=== PATIENT | female | born 1985 | race Caucasian/White ===

== ENCOUNTER 2019-02-19 09:56 | Emergency (ER) | payer MEDICAID, OTHER ==
[~2019-02-19] VITALS: Ht 162.6 cm; Wt 50.0 kg
--- NOTE | 2019-02-19 09:56 | NUR ---
Pt FLOYD ANAYA from home- EMS was called by pt's after he found the pt in her room, cyanotic, unresponsive. Pt still unresponsive after administered 8mg IN narcan. EMS started IV and gave additional 2mg IV narcan. Pt now responsive, A&O x4, tremulous. Pt c/o back pain, states chronic back pain that is unchanged from her normal amount of pain. Pt states "I am just tired of being in pain, I can't take pain." Pt placed in gown, positioned for comfort in bed with warm blankets. Continuous heart, oxygen and BP monitors applied, all safety measures observed. Pt's at bedside.
[2019-02-19 10:57] LABS: BASOPHILS # (AUTO) 0.03 x10^3/uL (0-0.1); BASOPHILS % (AUTO) 0 % (0-1); EOSINOPHILS % (AUTO) 0 % (1-7); LYMPHOCYTES # (AUTO) 0.56 x10^3/uL (1-3.4); LYMPHOCYTES % (AUTO) 4 % (22-44); MD NO; MEAN CORPUSCULAR HEMOGLOBIN 29.6 pg (27.0-34.8); MEAN CORPUSCULAR HGB CONC 32.3 g/dL (32.4-35.8); MEAN CORPUSCULAR VOLUME 91.5 fL (80-100); MEAN PLATELET VOLUME 7.1 fL (7.4-10.4); MONOCYTES # (AUTO) 0.79 x10^3/uL (0.2-0.8); MONOCYTES % (AUTO) 5 % (2-9); NEUTROPHILS # (AUTO) 13.77 x10^3/uL (1.8-6.8); NEUTROPHILS % (AUTO) 91 % (42-75); PLATELET COUNT 336 x10^3/uL (130-400); RED CELL DISTRIBUTION WIDTH 13.7 % (9.6-15.2)
[2019-02-19 11:00] LABS: ANION GAP 11 mmol/L (5-15); CHLORIDE 110 mmol/L (98-107); CREATININE 1.34 mg/dL (0.55-1.02)
--- NOTE | 2019-02-19 11:16 | NUR ---
Pt A&O x4, c/o nausea. Provider updated.
[2019-02-19] MEDS ORDERED: PHEN100C PO (11:18)
[2019-02-19] MEDS ORDERED: ONDANSETRON 2MG/ML, 2ML ONE (11:19)
--- NOTE | 2019-02-19 11:26 | NUR ---
Pt medicated for nausea per NOV. Dr. Hill at bedside to evaluate pt.
[2019-02-19] MEDS ORDERED: ONDANSETRON ODT 4 MG PO ONE (12:00)
--- NOTE | 2019-02-19 12:41 | NUR ---
Pt sitting up in bed talking with her mother. Pt states "I'm feeling way better". Pt given ice chips per request.
[2019-02-19 16:03] VITALS: BP 110/74
== END 2019-02-19 16:06 | disposition home or self-care (01) ==
LOC: ED 10:46
DX: T40.1X1A Poisoning by heroin, accidental (unintentional), initial encounter (principal); F11.10 Opioid abuse, uncomplicated; F17.200 Nicotine dependence, unspecified, uncomplicated; Z72.9 Problem related to lifestyle, unspecified; Z75.9 Unspecified problem related to medical facilities and other health care; Z88.0 Allergy status to penicillin; Y92.89 Other specified places as the place of occurrence of the external cause
CPT/HCPCS: 36415; 80048; 85025; 99283